=== PATIENT | female | born 1980 | race Caucasian/White ===

== ENCOUNTER 2016-06-12 22:55 | Emergency (ER) | payer OTHER ==
[~2016-06-12] VITALS: Ht 170.2 cm; Wt 59.0 kg
[2016-06-12 22:56] VITALS: BP 103/58
== END 2016-06-13 01:27 | disposition left against medical advice (07) ==
LOC: M ED 06-13 00:27
DX: R21 Rash and other nonspecific skin eruption (principal); Z53.21 Procedure and treatment not carried out due to patient leaving prior to being seen by health care provider

== ENCOUNTER → 2016-06-13 | Outpatient (REF) | payer OTHER | LOC: M LAB REF 10:45 | PROVIDERS: ATTEND Physician Assistant | DX: R30.0 Dysuria (principal) ==

== ENCOUNTER → 2016-07-20 | Outpatient (REF) | payer OTHER ==
[2016-07-20 12:46] LABS: ALBUMIN/GLOBULIN RATIO 1.43 (1.00-1.93); ALKALINE PHOSPHATASE 47 U/L (45-117); ALT/SGPT 23 U/L (12-78); ANION GAP 8 MEQ/L (8-16); AST/SGOT 28 U/L (15-37); BILIRUBIN,TOTAL 0.7 MG/DL (0.2-1.0); BLOOD UREA NITROGEN 11 MG/DL (7-18); CALCIUM LEVEL 8.6 MG/DL (8.5-10.1); CARBON DIOXIDE LEVEL 28 MEQ/L (21-32); CHLORIDE LEVEL 106 MEQ/L (98-107); CHOLESTEROL LEVEL 169 MG/DL (<200); CREATININE FOR GFR 0.82 MG/DL (0.55-1.02); GLOMERULAR FILTRATION RATE > 60.0 (>60); GLUCOSE, FASTING 93 MG/DL (70-105); POTASSIUM SERUM 4.1 MEQ/L (3.5-5.1); SODIUM LEVEL 142 MEQ/L (136-145); TOTAL PROTEIN 6.8 GM/DL (6.4-8.2); TRIGLYCERIDES LEVEL 68 MG/DL (<150)
== END ==
LOC: M SFHCCLAY 08:39
PROVIDERS: ATTEND Nurse Practitioner
DX: Z00.01 Encounter for general adult medical examination with abnormal findings (principal)

== ENCOUNTER → 2016-12-16 | Outpatient (REF) | payer OTHER | LOC: M LAB REF 13:25 | PROVIDERS: ATTEND Physician Assistant | DX: R35.0 Frequency of micturition (principal) ==

== ENCOUNTER → 2017-04-26 | Outpatient (REF) | payer OTHER ==
[2017-04-27 11:57] LABS: BASO # 0.1 10^3/uL (0.0-0.2); BASO % 0.9 % (0.0-1.0); EOS # 0.2 10^3/uL (0.0-0.50); EOS % 2.4 % (0.0-3.0); HEMATOCRIT 35.3 % (36.0-47.0); HEMOGLOBIN 11.7 g/dl (12.0-16.0); IMMATURE GRANULOCYTE % 0.1 % (0-0); LYMPH # 1.3 10^3/uL (1.5-4.5); LYMPH % 18.1 % (24.0-44.0); MEAN CORPUSCULAR HEMOGLOBIN 30.7 pg (27.0-33.0); MEAN CORPUSCULAR HGB CONC 33.1 g/dl (32.0-36.5); MEAN CORPUSCULAR VOLUME 92.7 fl (80.0-96.0); MONO # 0.5 10^3/uL (0.0-0.8); NEUTROPHILS % 71.5 % (36.0-66.0); PLATELET COUNT, AUTOMATED 287 10^3/uL (150-450); RED BLOOD COUNT 3.81 10^6/uL (4.00-5.40); RED CELL DISTRIBUTION WIDTH 12.3 % (11.5-14.5)
[2017-04-27 12:14] LABS: TOTAL 25(OH) VITAMIN D 27.6 NG/ML (30.0-100.0); VITAMIN B12 LEVEL 366 PG/ML (247-911)
[2017-04-27 12:28] LABS: ALBUMIN 4.5 GM/DL (3.2-5.2); ALKALINE PHOSPHATASE 48 U/L (45-117); ALT/SGPT 17 U/L (12-78); ANION GAP 8 MEQ/L (8-16); AST/SGOT 17 U/L (7-37); BILIRUBIN,TOTAL 0.4 MG/DL (0.2-1.0); BLOOD UREA NITROGEN 12 MG/DL (7-18); C REACTIVE PROTEIN QUANTITATIV < 0.30 MG/DL (0.00-0.30); CALCIUM LEVEL 9.3 MG/DL (8.5-10.1); CARBON DIOXIDE LEVEL 27 MEQ/L (21-32); CHLORIDE LEVEL 104 MEQ/L (98-107); CREATININE FOR GFR 0.76 MG/DL (0.55-1.30); FERRITIN 7 NG/ML (8-252); FREE T4 0.97 NG/DL (0.76-1.46); GLOMERULAR FILTRATION RATE > 60.0 (>60); GLUCOSE, FASTING 95 MG/DL (70-100); POTASSIUM SERUM 4.5 MEQ/L (3.5-5.1); RHEUMATOID FACTOR QUANT < 10.0 IU/ML (0-15.0); SODIUM LEVEL 139 MEQ/L (136-145); TOTAL PROTEIN 7.5 GM/DL (6.4-8.2); URIC ACID 2.7 MG/DL (2.6-6.0)
[2017-04-27 12:31] LABS: ERYTHROCYTE SEDIMENTATION RATE 9 mm/hr (0-20)
== END ==
LOC: M SFHCCLAY 15:34
DX: R53.83 Other fatigue (principal); Z84.0 Family history of diseases of the skin and subcutaneous tissue

== ENCOUNTER → 2018-10-13 | Outpatient (CLI) | payer OTHER ==
[~2018-10-13] MED LIST: BENA25CA4 PO; COLC1TAB13 PO
--- NOTE | 2018-10-13 18:28 | REP ---
CT abdomen and pelvis without IV or oral contrast: History: Acute left-sided low back pain. No comparison CT study. CT findings: Preliminary digital marketing proposal coordinator radiograph demonstrates umbilical jewelry. Bowel gas pattern is normal. The lung bases are clear on axial CT images. Incidental note is made of a small to moderate-sized pericardial effusion. This measures up to 14 mm in thickness underlying the base of the heart. There is no evidence of pleural effusion or upper abdominal ascites. The liver and the spleen are normal in size and homogeneous in texture. No adrenal lesion is seen. Pancreas is unremarkable. Gallbladder is small and contracted. No retroperitoneal mass or adenopathy is seen. There is no evidence of hydronephrosis. No intrarenal calculus is seen in either kidney. No bladder calculus is seen. No uterine or ovarian abnormality is observed. There is a small quantity of fluid in the cul-de-sac which may be physiologic. Small and large intestinal bowel loops are unremarkable. The patient relates a previous appendectomy. Impression: 1. Small to moderate-sized pericardial effusion noted. 2. Prior appendectomy by history. A very small quantity of cul-de-sac fluid is seen. This may be physiologic. 3. Otherwise negative CT study of the abdomen and pelvis. Electronically Signed by Parish Senior MD 10/13/2018 07:27 P
== END ==
LOC: M RAD 14:06
PROVIDERS: ATTEND Family Medicine
DX: I31.3 Pericardial effusion (noninflammatory) (principal); Z90.89 Acquired absence of other organs

== ENCOUNTER 2018-10-14 10:35 | Emergency (ER) | payer OTHER ==
[~2018-10-14] VITALS: Ht 170.2 cm; Wt 61.4 kg
[2018-10-14] MEDS ORDERED: BENA25CA4 PO (10:40)
[2018-10-14 11:20] LABS: BASO # 0.1 10^3/uL (0.0-0.2); EOS # 0.5 10^3/uL (0.0-0.50); EOS % 9.6 % (0.0-3.0); HEMATOCRIT 39.3 % (36.0-47.0); HEMOGLOBIN 13.3 g/dl (12.0-15.5); LYMPH # 1.2 10^3/uL (1.5-4.5); LYMPH % 23.4 % (24.0-44.0); MEAN CORPUSCULAR HEMOGLOBIN 31.3 pg (27.0-33.0); MEAN CORPUSCULAR HGB CONC 33.8 g/dl (32.0-36.5); MEAN CORPUSCULAR VOLUME 92.5 fl (80.0-96.0); MONO # 0.5 10^3/uL (0.0-0.8); MONO % 9.8 % (0.0-5.0); NEUTROPHILS # 2.8 10^3/uL (1.8-7.7); PLATELET COUNT, AUTOMATED 274 10^3/uL (150-450); RED BLOOD COUNT 4.25 10^6/uL (4.00-5.40); WHITE BLOOD COUNT 5.1 10^3/uL (4.0-10.0)
[2018-10-14 11:30] LABS: INR 0.97; PROTHROMBIN TIME 12.6 SECONDS (11.8-14.0)
[2018-10-14 11:48] LABS: ERYTHROCYTE SEDIMENTATION RATE 6 mm/hr (0-20)
[2018-10-14 11:52] LABS: ALBUMIN 4.2 GM/DL (3.2-5.2); ALT/SGPT 19 U/L (12-78); BILIRUBIN,DIRECT 0.2 MG/DL (0.0-0.2); BILIRUBIN,TOTAL 0.7 MG/DL (0.2-1.0); BLOOD UREA NITROGEN 8 MG/DL (7-18); C REACTIVE PROTEIN QUANTITATIV < 0.30 MG/DL (0.00-0.30); CALCIUM LEVEL 9.2 MG/DL (8.5-10.1); CARBON DIOXIDE LEVEL 28 MEQ/L (21-32); CHLORIDE LEVEL 108 MEQ/L (98-107); CK-MB VALUE MASS < 1.0 NG/ML (<3.6); CPK CREATINE PHOSPHOKINASE 87 U/L (26-192); CREATININE FOR GFR 0.93 MG/DL (0.55-1.30); GLOMERULAR FILTRATION RATE > 60.0 (>58); GLUCOSE, FASTING 89 MG/DL (70-100); LIPASE 115 U/L (73-393); MB/CK RELATIVE INDEX 1.15 (< OR =4); NT-PRO BNP 109 PG/ML (<125); POTASSIUM SERUM 4.2 MEQ/L (3.5-5.1); RHEUMATOID FACTOR QUANT < 10.0 IU/ML (<15.0); SODIUM LEVEL 140 MEQ/L (136-145); TOTAL PROTEIN 7.6 GM/DL (6.4-8.2); TROPONIN I < 0.02 NG/ML (< 0.10)
[2018-10-14] MEDS ORDERED: ISOVUE-370 76% 100ML VIAL (Q9967) As Ordered ONE (12:01)
[2018-10-14] MEDS ORDERED: COLC1TAB13 PO (13:51)
--- NOTE | 2018-10-14 13:51 | REP ---
CT chest with IV contrast: History: Pericardial effusion. Comparison abdomen CT October 13, 2018. CT contrast dose: 75 mL of intravenous Isovue [address] findings: Preliminary digital smog technician radiograph is unremarkable. There is no evidence of hilar or mediastinal mass or adenopathy. A small to moderate pericardial effusion is confirmed. Most of the fluid accumulates at the base and anterior to the base of the heart. No visible pericardial thickening or enhancement is seen. There is a very small amount of pleural fluid and thickening at the left base and a tiny amount of pleural thickening at the right base posteriorly. No infiltrate is seen in the lung [place]. No pulmonary nodule or mass lesion is observed. The lung [place] are otherwise clear. Bone window settings show no bony destructive lesion. Impression: Small to moderate pericardial effusion again seen. No pericardial mass or enhancement or thickening seen. Tiny amounts of pleural thickening and/or fluid bilaterally. Lung [place] are clear. Electronically Signed by Parish Senior MD 10/14/2018 02:30 P
[2018-10-14 14:12] VITALS: BP 100/65
--- NOTE | 2018-10-14 21:03 | ECGEPIP ---
[facility] - ED Test Date: 2018-10-14 Pat Name: TONNY NIELSON Department: Room: - Gender: Female Overnight Cashier: LOYD : 1980 Requested By: Sammi Bianchi Order Number: [id number] Reading MD: Aubrey Cuello Measurements Intervals [place] Rate: 59 P: 78 [place]: 157 QRS: 67 QRSD: 93 T: 57 QT: 415 QTc: 414 Interpretive Statements SINUS BRADYCARDIA BENIGN EARLY REPOLARIZATION NO PRIORS FOR COMPARISON Electronically Signed on 10-14-2018 21:02:56 EDT by Aubrey Cuello
--- NOTE | 2018-10-15 19:56 | ED PDOC ---
Post-Departure Follow-Up dr donaldson and faizan espinosa faxed formal report of ct chest for fu jadeg He Trotter MD Oct 15, 2018 19:56
[2018-10-16 00:06] LABS: ANTINUCLEAR ANTIBODIES DIRECT Negative (Negative)
--- NOTE | 2018-10-16 08:50 | ECHO ---
DATE OF SERVICE: 10/14/2018 AGE: 38 REFERRING PROVIDER: Sammi Bianchi MD PATIENT LOCATION: Emergency room 15. REASON FOR THE STUDY: Pericardial effusion. 2D MEASUREMENTS: IVS: 0.7 cm LV: 4.7 cm LVPW: 0.7 cm LA: 2.4 cm Aorta: 2.9 cm RV: 3.2 cm IVC: 1.9 cm DOPPLER MEASUREMENTS: Peak velocity across the aortic valve: 1.1 m/s Peak velocity across the LVOT: 0.95 m/s Mitral E: 0.99 Mitral A: 0.42 with a ratio of 2.4 2D COMMENTS: 1. Normal left ventricular size, wall thickness, and normal global left ventricular cervical systolic function. The estimated left ventricular systolic ejection fraction is 60% to 65%. 2. Normal left atrium. Normal right atrium and right ventricle. 3. Normal left atrium. The right atrium appeared to be mildly enlarged. The right ventricle also appeared to be mildly enlarged but with normal free conduction. 4. The atrial septum appeared to be normal without evidence of defect or shunt. 5. Normal aortic root. 6. A small pericardial effusion was noted, no evidence of cardiac component. 7. The aortic valve, mitral valve, tricuspid valve appeared to be normal. The pulmonic valve and proximal pulmonary artery branches were not well visualized. 8. The inferior vena cava was normal in size, central venous pressure is most likely normal. DOPPLER: It detects trace mitral regurgitation and trace tricuspid regurgitation. Assessment of the left ventricular diastolic function appeared to be normal. IMPRESSION: 1. Normal global left ventricular systolic and diastolic function. 2. Trace mitral regurgitation. 3. Trace tricuspid regurgitation. 4. A small pericardial effusion was noted, no evidence of cardiac component. 5. The above were discussed yesterday with emergency room (ER) provider requesting the study. PETR
== END 2018-10-14 14:20 | disposition home or self-care (01) ==
LOC: M ED 10:35
DX: I31.3 Pericardial effusion (noninflammatory) (principal); Z88.4 Allergy status to anesthetic agent
CPT/HCPCS: 36415; 71260; 80048; 80076; 82550; 82553; 83690; 83880; 84443; 84484; 85025; 85610; 85652; 86038; 86140; 86431; 87040; 93005; 93041; 93306; 94760; 99285; Q9967

== ENCOUNTER → 2018-10-18 | Outpatient (REF) | payer OTHER ==
[2018-10-19 12:41] LABS: BASO # 0.1 10^3/uL (0.0-0.2); BASO % 1.4 % (0.0-1.0); EOS # 0.4 10^3/uL (0.0-0.50); EOS % 7.2 % (0.0-3.0); HEMATOCRIT 39.2 % (36.0-47.0); LYMPH # 1.4 10^3/uL (1.5-4.5); LYMPH % 27.8 % (24.0-44.0); MEAN CORPUSCULAR HEMOGLOBIN 31.3 pg (27.0-33.0); MEAN CORPUSCULAR HGB CONC 33.2 g/dl (32.0-36.5); MEAN CORPUSCULAR VOLUME 94.2 fl (80.0-96.0); MONO # 0.5 10^3/uL (0.0-0.8); MONO % 10.1 % (0.0-5.0); NEUTROPHILS # 2.6 10^3/uL (1.8-7.7); NEUTROPHILS % 53.3 % (36.0-66.0); PLATELET COUNT, AUTOMATED 302 10^3/uL (150-450); RED BLOOD COUNT 4.16 10^6/uL (4.00-5.40); WHITE BLOOD COUNT 4.9 10^3/uL (4.0-10.0)
[2018-10-19 12:47] LABS: MONO REFLEX EBV COMP NEGATIVE (NEGATIVE)
[2018-10-21 00:08] LABS: EBV VIRAL CAPSID AG IgM <36.0 U/mL (0.0-35.9)
== END ==
LOC: M SFHCCLAY 14:42
PROVIDERS: ATTEND Nurse Practitioner Family
DX: R53.83 Other fatigue (principal); Z20.828 Contact with and (suspected) exposure to other viral communicable diseases

== ENCOUNTER → 2018-10-27 | Outpatient (CLI) | payer OTHER | LOC: M LAB 16:25 | PROVIDERS: ATTEND Internal Medicine Cardiovascular Disease | DX: R06.02 Shortness of breath (principal) ==

== ENCOUNTER → 2019-05-31 | Outpatient (REF) | payer OTHER | LOC: M LAB REF 16:25 | PROVIDERS: ATTEND Nurse Practitioner Family | DX: B35.1 Tinea unguium (principal) ==

== ENCOUNTER → 2020-06-10 | Outpatient (REF) | payer OTHER ==
[~2020-06-10] MED LIST changes: +COLC0.6T47 PO; -COLC1TAB13 PO
[2020-06-10 16:04] LABS: HEMOGLOBIN 13.7 g/dl (12.0-15.5); MEAN CORPUSCULAR HEMOGLOBIN 32.2 pg (27.0-33.0); MEAN CORPUSCULAR HGB CONC 32.6 g/dl (32.0-36.5); MEAN CORPUSCULAR VOLUME 98.6 fl (80.0-96.0); PLATELET COUNT, AUTOMATED 287 10^3/uL (150-450); RED BLOOD COUNT 4.26 10^6/uL (4.00-5.40); WHITE BLOOD COUNT 5.2 10^3/uL (4.0-10.0)
[2020-06-10 17:07] LABS: ALBUMIN 4.4 GM/DL (3.2-5.2); ALT/SGPT 31 U/L (12-78); BILIRUBIN,TOTAL 0.6 MG/DL (0.2-1.0); BLOOD UREA NITROGEN 12 MG/DL (7-18); CALCIUM LEVEL 9.4 MG/DL (8.5-10.1); CARBON DIOXIDE LEVEL 32 MEQ/L (21-32); CHLORIDE LEVEL 104 MEQ/L (98-107); CHOLESTEROL LEVEL 202 MG/DL (<200); CHOLESTEROL RISK RATIO 2.463 (<5); CREATININE FOR GFR 0.77 MG/DL (0.55-1.30); FREE T4 1.01 NG/DL (0.76-1.46); GLOMERULAR FILTRATION RATE > 60.0 (>58); GLUCOSE, FASTING 91 MG/DL (70-100); HDL CHOLESTEROL 82 MG/DL (>40); IRON (FE) 142 UG/DL (50-170); LDL CHOLESTEROL 103 MG/DL (<100); NON-HDL-C 120 MG/DL; POTASSIUM SERUM 4.4 MEQ/L (3.5-5.1); SODIUM LEVEL 140 MEQ/L (136-145); TOTAL PROTEIN 7.4 GM/DL (6.4-8.2); TRIGLYCERIDES LEVEL 84 MG/DL (<150)
== END ==
LOC: M SFHCCLAY 10:21
PROVIDERS: ATTEND Nurse Practitioner Family
DX: Z00.00 Encounter for general adult medical examination without abnormal findings (principal); E55.9 Vitamin D deficiency, unspecified; E61.1 Iron deficiency; J45.909 Unspecified asthma, uncomplicated; Z13.220 Encounter for screening for lipoid disorders

== ENCOUNTER → 2022-09-07 | Outpatient (CLI) | payer OTHER | LOC: M WUC 12:28 | PROVIDERS: ATTEND Nurse Practitioner Family | DX: R07.82 Intercostal pain (principal) ==

== ENCOUNTER → 2023-06-16 | Outpatient (CLI) | payer OTHER | LOC: M WUC 13:25 | PROVIDERS: ATTEND Physician Assistant | DX: S90.32XA Contusion of left foot, initial encounter (principal) ==

== ENCOUNTER → 2024-03-11 | Outpatient (CLI) | payer OTHER ==
[2024-03-11 10:16] LABS: BASO # 0.1 10^3/uL (0.0-0.2); BASO % 0.9 % (0.0-1.0); EOS # 0.2 10^3/uL (0.0-0.5); EOS % 1.7 % (0.0-3.0); HEMATOCRIT 44.1 % (36.0-47.0); LYMPH # 1.9 10^3/uL (1.5-5.0); LYMPH % 18.9 % (24.0-44.0); MEAN CORPUSCULAR HEMOGLOBIN 33.5 pg (27.0-33.0); MEAN CORPUSCULAR VOLUME 98.4 fl (80.0-96.0); MONO # 0.7 10^3/uL (0.0-0.8); MONO % 6.5 % (2.0-8.0); NEUTROPHILS # 7.3 10^3/uL (1.5-8.5); NEUTROPHILS % 71.6 % (36.0-66.0); PLATELET COUNT, AUTOMATED 322 10^3/uL (150-450); RED BLOOD COUNT 4.48 10^6/uL (4.00-5.40); WHITE BLOOD COUNT 10.2 10^3/uL (4.0-10.0)
[2024-03-11 10:24] LABS: ERYTHROCYTE SEDIMENTATION RATE 9 mm/hr (0-20)
[2024-03-11 10:40] LABS: ALBUMIN 4.7 G/DL (3.2-5.2); ALKALINE PHOSPHATASE 56 U/L (35-104); ALT/SGPT 20 U/L (7.0-40); AST/SGOT 21 U/L (<34); BILIRUBIN,TOTAL 0.8 MG/DL (0.3-1.2); BLOOD UREA NITROGEN 11 MG/DL (9-23); C REACTIVE PROTEIN QUANTITATIV < 0.50 MG/DL (<1.0); CALCIUM LEVEL 10.1 MG/DL (8.5-10.1); CARBON DIOXIDE LEVEL 27 MMOL/L (20-31); CHLORIDE LEVEL 106 MMOL/L (98-107); CHOLESTEROL LEVEL 241 MG/DL (<200); CHOLESTEROL RISK RATIO 2.39 (<5); CREATININE FOR GFR 0.74 MG/DL (0.55-1.30); GLOMERULAR FILTRATION RATE > 60.0 (>58); GLUCOSE, FASTING 65 MG/DL (60-100); HDL CHOLESTEROL 100.6 MG/DL (>40); IRON (FE) 74 UG/DL (50-170); LDL CHOLESTEROL 127.8 MG/DL (<100); NON-HDL-C 140.4 MG/DL; POTASSIUM SERUM 4.6 MMOL/L (3.5-5.1); SODIUM LEVEL 143 MMOL/L (136-145); TOTAL PROTEIN 8.1 G/DL (5.7-8.2); TRIGLYCERIDES LEVEL 63 MG/DL (<150)
[2024-03-11 10:44] LABS: FERRITIN 65.1 NG/ML (7.3-270.7); FOLLICLE STIMULATING HORMONE 44.7 mIU/ML; LUTEINIZING HORMONE 65.1 mIU/ML
[2024-03-11 10:45] LABS: FREE T4 1.09 NG/DL (0.89-1.76); VITAMIN B12 LEVEL 331 PG/ML (211-911)
[2024-03-11 10:46] LABS: FOLATE 15.54 NG/ML (>5.4); PROGESTERONE 1.13 NG/ML
[2024-03-11 12:50] LABS: HCG, SERUM QUANTITATIVE < 2.6 MIU/ML (<4.2)
[2024-03-11 12:52] LABS: PERCENT SATURATION 22.9 % (13.2-45.0); TOTAL IRON BINDING CAPACITY 323 UG/DL (250-425)
[2024-03-11 12:54] LABS: PROLACTIN 7.87 NG/ML; TOTAL 25(OH) VITAMIN D 36.3 NG/ML (20.0-100.0)
[2024-03-14 01:58] LABS: SEX HORMONE BINDING GLOBULIN 147 nmol/L (17-124)
== END ==
LOC: M LAB 08:41
PROVIDERS: ATTEND Emergency Medicine
DX: Z00.01 Encounter for general adult medical examination with abnormal findings (principal); Z13.29 Encounter for screening for other suspected endocrine disorder; Z13.21 Encounter for screening for nutritional disorder; R53.83 Other fatigue; R87.1 Abnormal level of hormones in specimens from female genital organs; E55.9 Vitamin D deficiency, unspecified; Z79.890 Hormone replacement therapy

== ENCOUNTER → 2024-05-02 | Outpatient (CLI) | payer OTHER ==
[2024-05-02 07:34] LABS: BASO # 0.1 10^3/uL (0.0-0.2); BASO % 1.6 % (0.0-1.0); EOS # 0.2 10^3/uL (0.0-0.5); HEMATOCRIT 39.7 % (36.0-47.0); HEMOGLOBIN 13.3 g/dl (12.0-15.5); LYMPH # 2.9 10^3/uL (1.5-5.0); LYMPH % 41.7 % (24.0-44.0); MEAN CORPUSCULAR HEMOGLOBIN 33.1 pg (27.0-33.0); MEAN CORPUSCULAR HGB CONC 33.5 g/dl (32.0-36.5); MEAN CORPUSCULAR VOLUME 98.8 fl (80.0-96.0); MONO # 0.7 10^3/uL (0.0-0.8); MONO % 10.6 % (2.0-8.0); NEUTROPHILS % 42.8 % (36.0-66.0); PLATELET COUNT, AUTOMATED 366 10^3/uL (150-450); RED BLOOD COUNT 4.02 10^6/uL (4.00-5.40)
[2024-05-02 08:28] LABS: PROGESTERONE 0.61 NG/ML; TOTAL 25(OH) VITAMIN D 78.2 NG/ML (20.0-100.0)
[2024-05-03 07:29] LABS: SEX HORMONE BINDING GLOBULIN 83 nmol/L (17-124)
== END ==
LOC: M LAB 06:27
PROVIDERS: ATTEND Emergency Medicine
DX: Z00.01 Encounter for general adult medical examination with abnormal findings (principal); Z79.890 Hormone replacement therapy; R53.83 Other fatigue; R87.1 Abnormal level of hormones in specimens from female genital organs